=== PATIENT | male | born 1935 | race Caucasian/White ===

== ENCOUNTER 2016-04-24 09:02 | Inpatient (IN) | payer OTHER ==
[2016-03-01 16:30] VITALS: Ht 172.7 cm; Wt 85.7 kg
[~2016-04-24] VITALS: Ht 172.7 cm; Wt 85.7 kg
[2016-04-24 09:02] VITALS: BP 119/62; PULSE 61; RESP 19; TEMP 98.1; O2SAT 97
[~2016-04-24 09:02] MED LIST: AMIO200T39 PO; ASPI-1063 PO; FEBU80TA PO; LEVO250T20 PO; LISI-217 PO; LISI20TA PO; SIMV20TA6 PO
[2016-04-24] MEDS ORDERED: ONDANSETRON 4 MG ODT TAB PO ONE ×2 (11:00→13:00)
[2016-04-24] MEDS ORDERED: MORPHINE 4 MG/ML INJ. SYRINGE IM ONE (11:00)
[2016-04-24] MEDS ORDERED: AMLO5TAB92 PO (11:17)
[2016-04-24] MEDS ORDERED: CORCR10 PO (11:17)
[2016-04-24 12:57] LABS: BILIRUBIN,URINE NEGATIVE (NEGATIVE); BLOOD, URINE 1+ (NEGATIVE); CLARITY/URINE SL HAZY (CLEAR); COLOR,URINE YELLOW (YELLOW); GLUCOSE,URINE NEGATIVE (NEGATIVE); KETONES,URINE NEGATIVE (NEGATIVE); LEUKOCYTE ESTERASE ,URINE TRACE (NEGATIVE); NITRITE, URINE NEGATIVE (NEGATIVE); PH,URINE 5.5 (5.0-8.0); PROTEIN URINE NEGATIVE (NEGATIVE); UROBILINOGEN,URINE 0.2 (0.2-1.0)
[2016-04-24] MEDS ORDERED: HYDROcodone/ACETAMIN 5-325 MG TAB (NORCO/ VICODIN) PO ONE (13:00)
[2016-04-24] MEDS ORDERED: CYCLOBENZAPRINE HCL 10 MG TABLET (FLEXERIL) PO ONE (13:00)
[2016-04-24 13:13] LABS: BACTERIA,URINE FEW /HPF (None Seen)
[2016-04-24] MEDS ORDERED: MORPHINE 4 MG/ML INJ. SYRINGE IVP ONE (13:45)
[2016-04-24] MEDS ORDERED: ONDANSETRON HCL 4 MG/2 ML VIAL IVP ONE (13:45)
[2016-04-24 14:37] LABS: BASOPHILS % (AUTO) 0.3 % (0.0-2.0); EOSINOPHILS # (AUTO) 0.1 K/uL (0.0-0.4); EOSINOPHILS % (AUTO) 1.5 % (0.0-4.0); HEMATOCRIT 36.5 % (36-54); HEMOGLOBIN 12.2 g/dL (14.0-18.0); LYMPHOCYTES # (AUTO) 1.3 K/uL (1.0-5.5); LYMPHOCYTES % (AUTO) 13.8 % (20.5-51.5); MEAN CORPUSCULAR HEMOGLOBIN 28 pg (27-31); MEAN CORPUSCULAR HGB CONC 34 % (32-36); MEAN CORPUSCULAR VOLUME 85 fL (79.0-98.0); MONOCYTES # (AUTO) 0.8 K/uL (0.0-1.0); NEUTROPHILS # (AUTO) 7.2 K/uL (1.8-7.7); NEUTROPHILS % (AUTO) 76.4 % (40.0-70.0); PLATELET COUNT (AUTO) 225 K/uL (130-430); RED BLOOD CELL COUNT(AUTO) 4.32 MIL/uL (4.2-6.2); RED CELL DISTRIBUTION WIDTH 14.5 % (9.0-15.0); WHITE BLOOD COUNT (AUTO) 9.4 K/uL (4.8-10.8)
[2016-04-24 14:42] LABS: ANION GAP 8 (5-15); CALCIUM 8.5 mg/dL (8.4-11.0); CHLORIDE 103 mmol/L (98-107); CREATININE 1.84 mg/dL (0.55-1.30); GLUCOSE 97 mg/dL (70-99); POTASSIUM 4.1 mmol/L (3.5-5.1); SODIUM SERUM 138 mmol/L (136-145); UREA NITROGEN, BLOOD 24 mg/dL (8-21)
[2016-04-24 15:59] VITALS: BP 131/73; PULSE 64; RESP 18; TEMP 98.5; O2SAT 100
[2016-04-24 16:13] VITALS: BP 140/89; PULSE 74; RESP 18; TEMP 98.5; O2SAT 100
[2016-04-24] MEDS ORDERED: ACETAMINOPHEN 325 MG TABLET PO PRN (19:00)
[2016-04-24] MEDS ORDERED: MORPHINE 2 MG/ML INJ. SYRINGE IVP PRN (19:15)
[2016-04-24] MEDS ORDERED: MORPHINE 4 MG/ML INJ. SYRINGE IVP PRN (19:15)
[2016-04-24] MEDS ORDERED: ONDANSETRON HCL 4 MG/2 ML VIAL IVP PRN (19:15)
[2016-04-24 19:25] VITALS: BP 119/61; PULSE 57; RESP 18; TEMP 96.5; O2SAT 98
[2016-04-24] MEDS: SIMVASTATIN 20 MG TABLET PO SCH (20:38)
[2016-04-24] MEDS: AMIODARONE HCL 200 MG TABLET PO SCH (20:39)
[2016-04-24] MEDS: amLODIPine BESYLATE 5 MG TABLET PO SCH (20:41)
[2016-04-24] MEDS: CARVEDILOL 3.125 MG TABLET (COREG) PO SCH (20:43)
[2016-04-24] MEDS ORDERED: CARVEDILOL PHOSPHATE 10 MG CPMP.24HR ( COREG CR) PO SCH (21:00)
[2016-04-24] MEDS: cefTRIAXone 1 GM in D5W 50 ML IV SCH (21:02)
[2016-04-25 04:16] VITALS: BP 111/62; PULSE 60; RESP 18; TEMP 98.4; O2SAT 92
[2016-04-25 07:55] VITALS: BP 136/76; PULSE 65; RESP 18; TEMP 99; O2SAT 92
[2016-04-25] MEDS ORDERED: NON-FORMULARY MEDICATION (Febuxostat (Uloric) 40 MG) PO SCH (09:00)
[2016-04-25] MEDS: CARVEDILOL 3.125 MG TABLET (COREG) PO SCH ×2 (09:47→20:22)
[2016-04-25] MEDS: amLODIPine BESYLATE 5 MG TABLET PO SCH ×2 (09:47→21:25)
[2016-04-25] MEDS: ASPIRIN 81 MG TABLET(ECOTRIN) PO SCH (09:47)
[2016-04-25 11:24] VITALS: BP 107/65; PULSE 51; RESP 18; TEMP 96.5; O2SAT 94
[2016-04-25 17:37] VITALS: BP 130/73; PULSE 55; RESP 18; TEMP 98.7; O2SAT 95
[2016-04-25 20:00] VITALS: BP 131/69; PULSE 58; RESP 19; TEMP 98.4; O2SAT 94
[2016-04-25] MEDS: cefTRIAXone 1 GM in D5W 50 ML IV SCH (20:21)
[2016-04-25] MEDS: SIMVASTATIN 20 MG TABLET PO SCH (20:23)
[2016-04-25] MEDS: AMIODARONE HCL 200 MG TABLET PO SCH (20:23)
[2016-04-26 00:26] VITALS: BP 116/63; PULSE 51; RESP 20; TEMP 97.8; O2SAT 94
[2016-04-26 04:19] VITALS: BP 122/66; PULSE 55; RESP 20; TEMP 98.2; O2SAT 95
[2016-04-26] MEDS: ASPIRIN 81 MG TABLET(ECOTRIN) PO SCH (09:05)
[2016-04-26] MEDS: amLODIPine BESYLATE 5 MG TABLET PO SCH ×2 (09:05→21:07)
[2016-04-26] MEDS: CARVEDILOL 3.125 MG TABLET (COREG) PO SCH ×2 (09:05→21:02)
[2016-04-26] MEDS ORDERED: COMMUNICATION ORDER XX ONE (09:15)
[2016-04-26 09:26] VITALS: BP 122/62; PULSE 64; RESP 20; TEMP 98; O2SAT 93
[2016-04-26 10:52] LABS: BASOPHILS % (AUTO) 0.4 % (0.0-2.0); EOSINOPHILS # (AUTO) 0.2 K/uL (0.0-0.4); EOSINOPHILS % (AUTO) 3.1 % (0.0-4.0); HEMATOCRIT 34.9 % (36-54); HEMOGLOBIN 11.6 g/dL (14.0-18.0); LYMPHOCYTES # (AUTO) 0.8 K/uL (1.0-5.5); LYMPHOCYTES % (AUTO) 11.8 % (20.5-51.5); MEAN CORPUSCULAR HEMOGLOBIN 28 pg (27-31); MEAN CORPUSCULAR HGB CONC 33 % (32-36); MEAN CORPUSCULAR VOLUME 85 fL (79.0-98.0); MONOCYTES # (AUTO) 0.8 K/uL (0.0-1.0); MONOCYTES % (AUTO) 10.9 % (1.7-9.3); NEUTROPHILS # (AUTO) 5.4 K/uL (1.8-7.7); NEUTROPHILS % (AUTO) 73.8 % (40.0-70.0); PLATELET COUNT (AUTO) 218 K/uL (130-430); RED BLOOD CELL COUNT(AUTO) 4.11 MIL/uL (4.2-6.2); RED CELL DISTRIBUTION WIDTH 14.2 % (9.0-15.0); WHITE BLOOD COUNT (AUTO) 7.2 K/uL (4.8-10.8)
[2016-04-26 10:58] LABS: ANION GAP 5 (5-15); CALCIUM 8.3 mg/dL (8.4-11.0); CHLORIDE 102 mmol/L (98-107); CREATININE 1.75 mg/dL (0.55-1.30); GLUCOSE 116 mg/dL (70-99); POTASSIUM 4.3 mmol/L (3.5-5.1); SODIUM SERUM 137 mmol/L (136-145); UREA NITROGEN, BLOOD 21 mg/dL (8-21)
[2016-04-26 11:04] LABS: ALANINE AMINOTRANSFERASE 11 U/L (12-78); ALBUMIN 2.9 g/dL (3.4-4.8); ASPARTATE AMINOTRANSFERASE 10 U/L (10-37); TOTAL BILIRUBIN 0.6 mg/dL (0.0-1.0); TOTAL PROTEIN, SERUM 6.9 g/dL (6.4-8.3)
[2016-04-26 11:55] VITALS: BP 125/65; PULSE 58; RESP 16; TEMP 97; O2SAT 94
[2016-04-26 16:39] VITALS: BP 138/75; PULSE 59; RESP 17; TEMP 97.9; O2SAT 94
[2016-04-26 19:40] VITALS: BP 118/67; PULSE 60; RESP 18; TEMP 98.6; O2SAT 94
[2016-04-26] MEDS ORDERED: ULORIC 40 MG PO SCH (21:00)
[2016-04-26] MEDS: AMIODARONE HCL 200 MG TABLET PO SCH (21:02)
[2016-04-26] MEDS: SIMVASTATIN 20 MG TABLET PO SCH (21:02)
[2016-04-26] MEDS: cefTRIAXone 1 GM in D5W 50 ML IV SCH (21:04)
[2016-04-27] VITALS: BP 118/60; PULSE 60; RESP 17; TEMP 98.6; O2SAT 93
[2016-04-27 04:42] VITALS: BP 122/57; PULSE 60; RESP 16; TEMP 98.4; O2SAT 92
[2016-04-27 08:00] VITALS: BP 140/73; PULSE 59; RESP 18; TEMP 97.9; O2SAT 95
[2016-04-27] MEDS ORDERED: ULORIC 40 MG PO SCH (09:00)
[2016-04-27] MEDS: ASPIRIN 81 MG TABLET(ECOTRIN) PO SCH (10:20)
[2016-04-27] MEDS: amLODIPine BESYLATE 5 MG TABLET PO SCH (10:21)
[2016-04-27] MEDS: CARVEDILOL 3.125 MG TABLET (COREG) PO SCH (10:22)
[2016-04-27 12:52] VITALS: BP 128/67; PULSE 60; RESP 16; TEMP 96.3; O2SAT 93
[2016-04-27 16:00] VITALS: BP 142/80; PULSE 63; RESP 20; TEMP 98.5; O2SAT 95
[2016-04-27 16:40] VITALS: BP 128/67; PULSE 60; RESP 16; TEMP 96.3; O2SAT 93
== END 2016-04-27 17:50 | disposition home health service (06) | DRG 535 ==
LOC: SED 09:02 → SMU 14:16
PROVIDERS: ADMIT Internal Medicine; ATTEND Internal Medicine
DX: S32.9XXA Fracture of unspecified parts of lumbosacral spine and pelvis, initial encounter for closed fracture (principal); N17.0 Acute kidney failure with tubular necrosis; N39.0 Urinary tract infection, site not specified; D68.59 Other primary thrombophilia; I48.0 Paroxysmal atrial fibrillation; I12.9 Hypertensive chronic kidney disease with stage 1 through stage 4 chronic kidney disease, or unspecified chronic kidney disease; E78.5 Hyperlipidemia, unspecified; W19.XXXA Unspecified fall, initial encounter; I25.10 Atherosclerotic heart disease of native coronary artery without angina pectoris; N40.0 Benign prostatic hyperplasia without lower urinary tract symptoms; F02.80 Dementia in other diseases classified elsewhere, unspecified severity, without behavioral disturbance, psychotic disturbance, mood disturbance, and anxiety; G20 Parkinson's disease; N18.3 Chronic kidney disease, stage 3 (moderate); R26.2 Difficulty in walking, not elsewhere classified; Z79.82 Long term (current) use of aspirin; Z79.899 Other long term (current) drug therapy; Y93.89 Activity, other specified; Y92.89 Other specified places as the place of occurrence of the external cause; Y99.8 Other external cause status
CPT/HCPCS: 36415; 72170-TC; 72192-TC; 73552; 80048; 80053; 81000-TC; 85025; 87086; 93971; 96372; 96374; 96375; 97110-GP; 97116-GP; 97530-GP; 99285; J0696; J2270; J2405; J7050; J7060; Q0162

== ENCOUNTER 2016-07-03 13:42 | Emergency (ER) | payer OTHER ==
[2016-03-01 16:30] VITALS: Ht 177.8 cm; Wt 81.6 kg
[~2016-07-03] VITALS: Ht 177.8 cm; Wt 81.6 kg
[~2016-07-03 13:42] MED LIST changes: +AMLO5TAB92 PO; +CORCR10 PO
[2016-07-03 13:46] VITALS: BP 110/58; PULSE 58; RESP 19; TEMP 98.2; O2SAT 96
[2016-07-03] MEDS ORDERED: NACL 0.9% 1,000 ML IV ONE (13:53)
--- NOTE | 2016-07-03 13:56 | NUR ---
Patient to ER bed 8 to gown for evaluation. Side rail up. Assumed care.
[2016-07-03] MEDS ORDERED: HYDR-1189 PO (14:00)
[2016-07-03] MEDS ORDERED: ONDANSETRON HCL 4 MG/2 ML VIAL IVP ONE (14:00)
[2016-07-03] MEDS ORDERED: MORPHINE 4 MG/ML INJ. SYRINGE IVP ONE (14:00)
--- NOTE | 2016-07-03 14:00 | NUR ---
ER at bedside examining patient.
--- NOTE | 2016-07-03 14:05 | NUR ---
Pt presents to ER R coccyx pain pain. Pt seen in ED approximately 2 months ago .Pt trippped olayinka grandchild last meeting. Pt has mild to moderate pain on R side.Pt unable to tolerate ambulation.
[2016-07-03 14:13] LABS: BASOPHILS % (AUTO) 0.3 % (0.0-2.0); EOSINOPHILS # (AUTO) 0.1 K/uL (0.0-0.4); EOSINOPHILS % (AUTO) 1.2 % (0.0-4.0); HEMOGLOBIN 12.4 g/dL (14.0-18.0); LYMPHOCYTES # (AUTO) 1.1 K/uL (1.0-5.5); LYMPHOCYTES % (AUTO) 11.2 % (20.5-51.5); MEAN CORPUSCULAR HEMOGLOBIN 29 pg (27-31); MEAN CORPUSCULAR HGB CONC 34 % (32-36); MEAN CORPUSCULAR VOLUME 84 fL (79.0-98.0); MONOCYTES # (AUTO) 0.5 K/uL (0.0-1.0); MONOCYTES % (AUTO) 5.5 % (1.7-9.3); NEUTROPHILS # (AUTO) 8.1 K/uL (1.8-7.7); NEUTROPHILS % (AUTO) 81.8 % (40.0-70.0); PLATELET COUNT (AUTO) 238 K/uL (130-430); RED CELL DISTRIBUTION WIDTH 14.9 % (9.0-15.0); WHITE BLOOD COUNT (AUTO) 9.8 K/uL (4.8-10.8)
--- NOTE | 2016-07-03 14:15 | NUR ---
# 20 gauge angiocath placed to RFA. Use of asceptic technique. Opsite placed over site. Blood return noted. Flushed with 10 cc of normal saline. No evidence of infiltration noted. Patient tolerated well.
[2016-07-03 14:18] LABS: CALCIUM 8.4 mg/dL (8.4-11.0); CHLORIDE 109 mmol/L (98-107); CREATININE 2.06 mg/dL (0.55-1.30); GLUCOSE 141 mg/dL (70-99); POTASSIUM 4.5 mmol/L (3.5-5.1); SODIUM SERUM 140 mmol/L (136-145); UREA NITROGEN, BLOOD 28 mg/dL (8-21)
--- NOTE | 2016-07-03 14:20 | NUR ---
Medication reconciliation completed with information provided by family. Any prior medication reconciliation on file was reviewed and corrected.
[2016-07-03 14:27] LABS: ANION GAP < 3 (5-15)
--- NOTE | 2016-07-03 15:00 | NUR ---
Pt reports pain resolving
--- NOTE | 2016-07-03 15:15 | NUR ---
Endorsed pt from JOAQUIN Sureo. Pt is in stable condition.
[2016-07-03 16:00] LABS: BILIRUBIN,URINE NEGATIVE (NEGATIVE); CLARITY/URINE CLEAR (CLEAR); COLOR,URINE YELLOW (YELLOW); GLUCOSE,URINE NEGATIVE (NEGATIVE); KETONES,URINE NEGATIVE (NEGATIVE); LEUKOCYTE ESTERASE ,URINE TRACE (NEGATIVE); NITRITE, URINE NEGATIVE (NEGATIVE); PROTEIN URINE NEGATIVE (NEGATIVE); UROBILINOGEN,URINE 0.2 (0.2-1.0)
[2016-07-03 16:14] LABS: BLOOD, URINE TRACE (NEGATIVE)
[2016-07-03 16:59] LABS: BACTERIA,URINE FEW /HPF (None Seen); RBC,URINE 0-3 /HPF (0-3)
[2016-07-03 17:00] LABS: FINE GRANULAR CASTS,URINE 0-10 /LPF (None Seen); MUCUS,URINE 1+ /LPF (None Seen)
[2016-07-03] MEDS ORDERED: CIPROFLOXACIN HCL 500 MG TABLET PO ONE (17:15)
[2016-07-03 17:53] VITALS: BP 110/58; PULSE 58; RESP 19; TEMP 98.2; O2SAT 96
--- NOTE | 2016-07-03 17:53 | NUR ---
Patient given written and verbal discharge instructions and verbalizes understanding. ER MD LAWSON discussed with patient the results and treatment provided. Patient in stable condition. ID arm band removed. IV catheter removed intact and dressing applied, no active bleeding. Rx of ZOFRAN, COLACE, AND PERCOCET given. Patient educated on pain management and to follow up with PMD. Pain Scale 2/10. Opportunity for questions provided and answered.
== END 2016-07-03 17:53 | disposition home or self-care (01) ==
LOC: SED 13:42
DX: M25.551 Pain in right hip (principal); I10 Essential (primary) hypertension; I48.91 Unspecified atrial fibrillation; F03.90 Unspecified dementia, unspecified severity, without behavioral disturbance, psychotic disturbance, mood disturbance, and anxiety; G20 Parkinson's disease; Z79.82 Long term (current) use of aspirin; Z88.5 Allergy status to narcotic agent
CPT/HCPCS: 36415; 74176; 80048; 81000; 85025; 85610; 85730; 87086; 96361; 96374; 96375; 99285; J2270; J2405; J7030

== ENCOUNTER 2019-03-24 15:18 | Inpatient (IN) | payer OTHER ==
[~2019-03-24] VITALS: Ht 177.8 cm; Wt 74.8 kg
[~2019-03-24 15:18] MED LIST changes: -AMIO200T39 PO; +AMIO200T6 PO; -ASPI-1063 PO; +ASPI-1153 PO; +HYDR-1189 PO; -LEVO250T20 PO; -LISI-217 PO; -LISI20TA PO
[2019-03-24 15:33] VITALS: BP_SYST 153
[2019-03-24 17:59] LABS: BASOPHILS % (AUTO) 0.4 % (0.0-2.0); EOSINOPHILS # (AUTO) 0.1 K/uL (0.0-0.4); EOSINOPHILS % (AUTO) 1.1 % (0.0-4.0); HEMATOCRIT 41.7 % (36-54); HEMOGLOBIN 13.6 g/dL (14.0-18.0); LYMPHOCYTES # (AUTO) 0.8 K/uL (1.0-5.5); LYMPHOCYTES % (AUTO) 7.9 % (20.5-51.5); MEAN CORPUSCULAR HEMOGLOBIN 29 pg (27-31); MEAN CORPUSCULAR HGB CONC 33 % (32-36); MEAN CORPUSCULAR VOLUME 90 fL (79.0-98.0); MONOCYTES # (AUTO) 0.4 K/uL (0.0-1.0); MONOCYTES % (AUTO) 3.9 % (1.7-9.3); NEUTROPHILS # (AUTO) 9.1 K/uL (1.8-7.7); NEUTROPHILS % (AUTO) 86.7 % (40.0-70.0); PLATELET COUNT (AUTO) 248 K/uL (130-430); RED BLOOD CELL COUNT(AUTO) 4.65 MIL/uL (4.2-6.2); RED CELL DISTRIBUTION WIDTH 14.4 % (9.0-15.0); WHITE BLOOD COUNT (AUTO) 10.5 K/uL (4.8-10.8)
[2019-03-24 18:16] LABS: ANION GAP 5 (5-15); CALCIUM 8.4 mg/dL (8.4-11.0); CHLORIDE 107 mmol/L (98-107); CREATININE 1.63 mg/dL (0.55-1.30); GLUCOSE 114 mg/dL (70-99); SODIUM SERUM 141 mmol/L (136-145); UREA NITROGEN, BLOOD 18 mg/dL (8-21)
[2019-03-24 18:22] LABS: ALANINE AMINOTRANSFERASE 16 U/L (12-78); ALBUMIN 3.2 g/dL (3.4-4.8); ASPARTATE AMINOTRANSFERASE 18 U/L (10-37); TOTAL BILIRUBIN 0.6 mg/dL (0.0-1.0)
[2019-03-24] MEDS ORDERED: ONDANSETRON HCL 4 MG/2 ML VIAL IVP ONE (18:30)
[2019-03-24] MEDS ORDERED: MORPHINE 4 MG/ML INJ. SYRINGE IVP ONE (18:30)
[2019-03-24] MEDS ORDERED: COR6.25 PO (21:19)
[2019-03-24] MEDS ORDERED: NOR10 PO (21:19)
[2019-03-24] MEDS ORDERED: ONDANSETRON HCL 4 MG/2 ML VIAL IVP PRN (22:15)
[2019-03-24] MEDS ORDERED: MORPHINE 2 MG/ML INJ. SYRINGE IVP PRN (22:15)
[2019-03-24] MEDS ORDERED: ACETAMINOPHEN 325 MG TABLET PO PRN (22:15)
[2019-03-24] MEDS ORDERED: ALBUTEROL SULFATE 0.083% 2.5 MG/3 ML VIAL.NEB INH PRN (22:15)
[2019-03-24] MEDS ORDERED: MORPHINE 4 MG/ML INJ. SYRINGE IVP PRN (22:15)
[2019-03-24] MEDS: NACL 0.9% 1,000 ML IV SCH (22:29)
[2019-03-24] MEDS ORDERED: CARVEDILOL 6.25 MG TABLET (COREG) PO SCH (22:30)
[2019-03-24] MEDS ORDERED: amLODIPine BESYLATE 10 MG TABLET PO SCH (22:30)
[2019-03-24] MEDS ORDERED: hydrALAZINE HCL 20 MG/ML VIAL IVP PRN (22:30)
[2019-03-25 06:43] LABS: ALANINE AMINOTRANSFERASE 18 U/L (12-78); ALBUMIN 2.7 g/dL (3.4-4.8); ANION GAP 4 (5-15); ASPARTATE AMINOTRANSFERASE 16 U/L (10-37); CALCIUM 7.8 mg/dL (8.4-11.0); CHLORIDE 110 mmol/L (98-107); POTASSIUM 4.3 mmol/L (3.5-5.1); SODIUM SERUM 142 mmol/L (136-145); UREA NITROGEN, BLOOD 17 mg/dL (8-21)
[2019-03-25 06:51] LABS: BASOPHILS # (AUTO) 0.1 K/uL (0.0-0.2); BASOPHILS % (AUTO) 0.9 % (0.0-2.0); EOSINOPHILS # (AUTO) 0.2 K/uL (0.0-0.4); EOSINOPHILS % (AUTO) 1.5 % (0.0-4.0); HEMATOCRIT 38.7 % (36-54); HEMOGLOBIN 12.7 g/dL (14.0-18.0); LYMPHOCYTES % (AUTO) 8.4 % (20.5-51.5); MEAN CORPUSCULAR HEMOGLOBIN 29 pg (27-31); MEAN CORPUSCULAR HGB CONC 33 % (32-36); MEAN CORPUSCULAR VOLUME 89 fL (79.0-98.0); MONOCYTES # (AUTO) 0.7 K/uL (0.0-1.0); MONOCYTES % (AUTO) 5.8 % (1.7-9.3); NEUTROPHILS # (AUTO) 9.5 K/uL (1.8-7.7); NEUTROPHILS % (AUTO) 83.4 % (40.0-70.0); PLATELET COUNT (AUTO) 215 K/uL (130-430); RED BLOOD CELL COUNT(AUTO) 4.34 MIL/uL (4.2-6.2); RED CELL DISTRIBUTION WIDTH 14.5 % (9.0-15.0); WHITE BLOOD COUNT (AUTO) 11.4 K/uL (4.8-10.8)
[2019-03-25 07:04] LABS: GLUCOSE 108 mg/dL (70-99)
[2019-03-25 07:06] LABS: TOTAL BILIRUBIN 1.1 mg/dL (0.0-1.0)
[2019-03-25] MEDS ORDERED: amLODIPine BESYLATE 10 MG TABLET PO SCH (09:00)
[2019-03-25] MEDS ORDERED: CARVEDILOL 6.25 MG TABLET (COREG) PO SCH ×2 (09:00→21:00)
[2019-03-25 10:16] VITALS: BP_SYST 148
[2019-03-25 12:11] VITALS: BP_SYST 130
[2019-03-25 14:30] VITALS: BP_SYST 130
[2019-03-25 16:11] VITALS: BP_SYST 137
[2019-03-25] MEDS: NACL 0.9% 1,000 ML IV SCH (16:22)
[2019-03-25 17:23] VITALS: BP_SYST 137
[2019-03-25] MEDS ORDERED: AMIODARONE HCL 200 MG TABLET PO SCH ×2 (21:00)
[2019-03-25] MEDS ORDERED: SIMVASTATIN 20 MG TABLET PO SCH (21:00)
[2019-03-26] MEDS ORDERED: ASPIRIN 81 MG TAB.CHEW PO SCH (09:00)
== END 2019-03-25 19:20 | DRG 536 ==
LOC: SED 15:18 → SMU 19:25
PROVIDERS: ADMIT Internal Medicine; ATTEND Internal Medicine
DX: S72.002A Fracture of unspecified part of neck of left femur, initial encounter for closed fracture (principal); E78.5 Hyperlipidemia, unspecified; F02.80 Dementia in other diseases classified elsewhere, unspecified severity, without behavioral disturbance, psychotic disturbance, mood disturbance, and anxiety; G20 Parkinson's disease; G62.9 Polyneuropathy, unspecified; I10 Essential (primary) hypertension; I48.0 Paroxysmal atrial fibrillation; W01.0XXA Fall on same level from slipping, tripping and stumbling without subsequent striking against object, initial encounter; M10.9 Gout, unspecified; Y93.89 Activity, other specified; Y92.89 Other specified places as the place of occurrence of the external cause; Y99.8 Other external cause status; Z79.82 Long term (current) use of aspirin; Z79.899 Other long term (current) drug therapy; Z82.49 Family history of ischemic heart disease and other diseases of the circulatory system; Z87.891 Personal history of nicotine dependence; Z88.8 Allergy status to other drugs, medicaments and biological substances
CPT/HCPCS: 36415; 71045; 72170-TC; 73502; 80053; 82550-TC; 83880; 84484; 85025; 93005; 93306; 96374; 96375; 99285; J2270; J2405; J7030